=== PATIENT | female | born 1980 | race Caucasian/White ===

== ENCOUNTER 2019-11-30 10:58 | Emergency (ER) | payer OTHER ==
[~2019-11-30] VITALS: Ht 167.6 cm; Wt 98.0 kg
[2019-11-30] MEDS ORDERED: VITAMIN D3 COM1 EACH (11:20)
== END 2019-11-30 16:49 | disposition home or self-care (01) ==
LOC: ER 10:58
DX: R10.2 Pelvic and perineal pain (principal)

== ENCOUNTER 2023-05-20 07:08 | Outpatient (CLI) | payer OTHER ==
[~2023-05-20 07:08] MED LIST: VITAMIN D3 COM1 EACH
== END 2023-05-20 07:23 | disposition home or self-care (01) ==
LOC: TOM 07:08
PROVIDERS: ATTEND Colon & Rectal Surgery
DX: K63.2 Fistula of intestine (principal)

== ENCOUNTER 2024-01-16 20:42 | Emergency (ER) | payer OTHER ==
[~2024-01-16] VITALS: Ht 170.2 cm; Wt 90.3 kg
[2024-01-16] MEDS ORDERED: cloNIDine HCL 0.2 MG TABLET PO STA (21:23)
[2024-01-16] MEDS ORDERED: KETOROLAC TROMETHAMINE 30 MG VIAL IM STA (22:44)
== END 2024-01-16 22:51 | disposition home or self-care (01) ==
LOC: ER 20:43
DX: R51.9 Headache, unspecified (principal); I10 Essential (primary) hypertension; Z88.0 Allergy status to penicillin